=== PATIENT | male | born 1950 | race Caucasian/White ===

== ENCOUNTER → 2018-11-17 | Outpatient (CLI) | payer MEDICARE, MEDICAID | LOC: M.LAB 05:08 | DX: E87.6 Hypokalemia (principal) ==

== ENCOUNTER → 2018-12-01 | Outpatient (CLI) | payer MEDICARE, MEDICAID | LOC: M.NUC 11-23 07:30 | DX: R10.9 Unspecified abdominal pain (principal); R11.2 Nausea with vomiting, unspecified ==